=== PATIENT | female | born 1985 | race Caucasian/White ===

== ENCOUNTER → 2023-10-30 | Emergency (ER) | payer OTHER ==
--- NOTE | 2023-10-30 18:31 | ER ---
Nurse's Notes [facility] Name: Ginger Marr Age: 38 yrs Sex: Female : 1985 Arrival Date: 10/30/2023 Time: 14:42 Bed IW9 Private MD: Diagnosis: Rash and other nonspecific skin eruption Presentation: 10/30 15:52 Chief complaint: Patient states: Rash to left arm, fever x 1 day. Coronavirus screen: jl7 At this time, the client does not indicate any symptoms associated with coronavirus-19. Ebola Screen: No symptoms or risks identified at this time. Initial Sepsis Screen: Does the patient meet any 2 criteria? No. Patient's initial sepsis screen is negative. Does the patient have a suspected source of infection? No. Patient's initial sepsis screen is negative. Risk Assessment: Do you want to hurt yourself or someone else? Patient reports no desire to harm self or others. Onset of symptoms was October 30, 2023. 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 - Social history:: Smoking status: Patient denies any tobacco usage or history of. Assessment: 17:46 Reassessment: called from [facility], unable to locate. jl7 Vital Signs: 15:52 BP 121 / 89; Pulse 82; Resp 17; Temp 98.5; Pulse Ox 98% ; Weight 70.31 kg; Height 4 ft. jl7 11 in. ; Pain 0/10; 15:52 Body Mass Index 31.31 (70.31 kg, 149.86 cm) jl7 15:52 Pain Scale: Adult jl7 ED Course: 15:00 Patient arrived in ED. ts1 15:14 Long Herndon PA is PHCP. cp 15:14 Long Lora MD is Attending Physician. cp 15:53 Triage completed. jl7 15:53 Arm band placed on right wrist. Patient placed in waiting room, Patient notified of jl7 wait time. Administered Medications: No medications were administered Outcome: 18:31 Discharge ordered by MD. oseguera 18:49 Patient left the ED. ap3 Signatures: Long Herndon PA PA cp Leal, Jahala, RN RN jl7 Paradise Murray RN RN ap3 Nighat Brown PAS PAS ts1
--- NOTE | 2023-10-30 18:31 | EDPHYS ---
Physician Documentation [facility] Name: Ginger Marr Age: 38 yrs Sex: Female : 1985 Arrival Date: 10/30/2023 Time: 14:42 Bed IW9 Private MD: ED Physician Long Lora HPI: 10/30 16:05 This 38 yrs old Female presents to ER via Ambulatory with complaints of Fever, Rash. cp 16:05 The patient reports fever, that was measured at 100 degrees Fahrenheit. Onset: The cp symptoms/episode began/occurred 1 week(s) ago. 16:05 Associated signs and symptoms: Pertinent positives: rash to left upper arm that started cp yesterday. 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 - Social history:: Smoking status: Patient denies any tobacco usage or history of. ROS: 16:10 Constitutional: Negative for fever, poor PO intake, cp 16:10 Eyes: Negative for injury, pain, redness, and discharge, cp 16:10 ENT: Negative for drainage from ear(s), ear pain, difficulty swallowing, difficulty handling secretions, 16:10 Cardiovascular: Negative for chest pain, 16:10 Respiratory: Negative for cough, shortness of breath, wheezing, 16:10 Abdomen/GI: Negative for vomiting, diarrhea, constipation, 16:10 Skin: Positive for rash, of the left upper arm, 16:10 Neuro: Negative for altered mental status, weakness, 16:10 All other systems are negative, Exam: 16:10 Constitutional: The patient appears in no acute distress, alert, awake, comfortable, cp non-toxic, well developed, well nourished, 16:10 Head/Face: Normocephalic, atraumatic. cp 16:10 Eyes: Periorbital structures: appear normal, Conjunctiva: normal, no exudate, no injection, Sclera: no appreciated abnormality, Lids and lashes: appear normal, bilaterally, 16:10 ENT: External ear(s): are unremarkable, Nose: is normal, Mouth: Lips: moist, Oral mucosa: moist, Posterior pharynx: Airway: no evidence of obstruction, patent, 16:10 Chest/axilla: Inspection: normal, 16:10 Cardiovascular: Rate: normal, Rhythm: regular, 16:10 Respiratory: the patient does not display signs of respiratory distress, Respirations: normal, no use of accessory muscles, no retractions, labored breathing, is not present, Breath sounds: are clear throughout, no decreased breath sounds, no stridor, no wheezing, 16:10 Abdomen/GI: Inspection: abdomen appears normal, Palpation: abdomen is soft and non-tender, in all quadrants, 16:10 Back: pain, is absent, ROM is normal, 16:10 Skin: rash can be described as erythematous, on the left upper inner arm, Vital Signs: 15:52 BP 121 / 89; Pulse 82; Resp 17; Temp 98.5; Pulse Ox 98% ; Weight 70.31 kg; Height 4 ft. jl7 11 in. ; Pain 0/10; 15:52 Body Mass Index 31.31 (70.31 kg, 149.86 cm) jl7 15:52 Pain Scale: Adult jl7 MDM: 15:55 Patient medically screened. cp 16:15 Differential diagnosis: cellulitis, abscess, sepsis. cp 18:30 Data reviewed: vital signs, nurses notes. cp Administered Medications: No medications were administered Disposition Summary: 10/30/23 18:31 Discharge Ordered Notes: Location: Home cp Problem: new cp Symptoms: are unchanged cp Condition: Stable cp Diagnosis - Rash and other nonspecific skin eruption cp Followup: cp - With: Private Physician - When: 2 - 3 days - Reason: Recheck today's complaints Discharge Instructions: - Discharge Summary Sheet cp - Rash, Adult cp Forms: - Medication Reconciliation Form cp - Thank You Letter cp - Antibiotic Education cp - Prescription Opioid Use cp - Patient Portal Instructions cp - Leadership Thank You Letter cp Signatures: Dispatcher [employer] EDMS Long Herndon PA PA cp Leal, Jahala RN RN jl7 Corrections: (The following items were deleted from the chart) 18:11 15:57 CBC+H.LAB.BRZ ordered. EDMS EDMS 18:12 15:57 LACTATE+C.LAB.BRZ ordered. EDMS EDMS 18:12 15:57 COMPREHENSIVE METABOLIC PANEL+C.LAB.BRZ ordered. EDMS EDMS 18:13 15:57 Urinalysis W/Microscopic+U.LAB.BRZ ordered. EDMS EDMS 18:13 15:57 Test, Urine+UC.LAB.BRZ ordered. EDMS EDMS 18:42 15:56 IV Saline Lock ordered. cp jl7 18:49 15:57 SARS-COV-2 RT PCR+MOL.LAB.BRZ ordered. EDMS EDMS 18:49 15:57 Influenza Screen (A \T\ B)+BA.LAB.BRZ ordered. EDMS EDMS
[2023-10-30 21:09] VITALS: BP 121/89; TEMP 98.5; O2SAT 98
== END ==
LOC: ER 14:42
DX: R21 Rash and other nonspecific skin eruption (principal); Z11.52 Encounter for screening for COVID-19
CPT/HCPCS: 99281